=== PATIENT | male | born 1965 | race Caucasian/White ===

== ENCOUNTER → 2016-03-23 | Day surgery (SDC) | payer MEDICAID ==
[~2016-03-23] VITALS: Ht 193 cm; Wt 97.5 kg
[~2016-03-23] MED LIST: ACETAMINOPHEN/HYDROcodone 325 MG/5 MG TAB PO PRN; BUPIVACAINE HCL PF 0.5% 30 ML VIAL ONE; CLINDAMYCIN INJ 900 MG in SODIUM CHLORIDE 0.9% INJ 100 ML IV SCH; DEPA500T3 PO; DEXT 5%-NACL 0.45% 1000 ML INJ 1,000 ML IV SCH; DEXTROSE 5%-LACTATED RING INJ 1,000 ML IV ONE; DEXTROSE 5%-LACTATED RING INJ 1,000 ML IV SCH; DEXTROSE 5%-LACTATED RING INJ 1,000 ML ONE; DO NOT ADM ANY ANTICOAGULANT DRUGS XX PRN; FAMOTIDINE 20 MG/2 ML VIAL ONE; HYDR-3288 PO; INSULIN HUMAN REGULAR 1,000 UNITS/10 ML VIAL SQ PRN; LACTATED RINGER'S 1000 ML IV SCH; LANTUS2P SQ; LEVE500 PO; METOPROLOL TARTRATE 25 MG TAB PO PRN; MIDAZOLAM HCL 2 MG/2 ML VIAL ONE; NEOSTIGMINE METHYLSULFATE 10 MG/10 ML VIAL IV PUSH ONE; NORMOSOL R INJ 1,000 ML IV ONE; NOVORP2 SQ; OMEP40CA2 PO; ONDANSETRON HCL 4 MG/2 ML VIAL IV PUSH ONE; POVIDONE IODINE 10% OINT 1 PACKET TOP ONE; PROPOFOL 200 MG/20 ML AMP IV ONE; SIMV40TA PO; SODIUM CHLORID 0.9% 500 ML IV SCH; SODIUM CHLORIDE 0.9% FLUSH 5 ML FLUSH IVF PRN; SODIUM CHLORIDE 0.9% FLUSH 5 ML FLUSH IVF SCH; SODIUM CHLORIDE 0.9% INJ 100 ML ONE; TEGR400T PO; fentaNYL CITRATE 250 MCG/5 ML AMP ONE
[2016-03-23 06:40] VITALS: BP 125/72; PULSE 57; RESP 20; TEMP 98.6; O2SAT 99
[2016-03-23 06:55] LABS: AUTOMATED NEUTROPHIL # 3.1 TH/MM3 (1.8-7.7); BASOPHIL % 0.4 % (0.0-2.0); EOSINOPHIL # 0.1 TH/MM3 (0-0.4); EOSINOPHIL % 2.4 % (0.0-4.0); HEMATOCRIT 39.9 % (39.0-51.0); HEMO FLAGS DIFF FINAL; LYMPH % 29.9 % (9.0-44.0); LYMPHOCYTE # 1.6 TH/MM3 (1.0-4.8); MEAN CELL VOLUME 90.3 FL (80.0-100.0); MEAN CORPUSCULAR HEMOGLOBIN 31.2 PG (27.0-34.0); MEAN CORPUSCULAR HGB CONC 34.5 % (32.0-36.0); MONO % 8.8 % (0.0-8.0); NEUT % 58.5 % (16.0-70.0); PLATELET COUNT 198 TH/MM3 (150-450); RED BLOOD COUNT 4.42 MIL/MM3 (4.50-5.90); RED CELL DISTRIBUTION WIDTH 14.1 % (11.6-17.2); WHITE BLOOD COUNT 5.2 TH/MM3 (4.0-11.0)
--- NOTE | 2016-03-23 07:54 | HP.UPD ---
H&P Update Date: Mar 23, 2016 Note The Pre-Admit History and Physical Examination regarding the above named patient was reviewed (including, but not limited to, vital signs, medications, allergies, co-morbid conditions), and upon re-examination it is noted that: Indicated with "X" x - the patient's condition has not significantly changed since the last examination. [] - the patient's condition has changed since the last examination. Changes: Radha Faith MD Mar 23, 2016 07:54
--- NOTE | 2016-03-23 08:28 | EKG ---
Date Performed: 03/23/2016 Time Performed: 07:45:23 PTAGE: 50 years EKG: SINUS BRADYCARDIA BORDERLINE ECG PREVIOUS TRACING : 06/22/2015 13.21 No significant change from previous tracing noted. DOCTOR: Lito Saldana Interpretating Date/Time 03/23/2016 08:27:54
--- NOTE | 2016-03-23 11:08 | HHI.PR ---
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 Release Dupuytren's contracture of right palm and ring finger. 2. Open release of the right carpal tunnel. 3. Open release of right Guyon's canal. Specimen(s) removed: Dupuytren's fascia of palm and ring finger Anesthesia: General Drains: None Tourniquet time (min at mmHg) 100 minutes at 220 mmHg Patient to: PACU Patient Condition: Good Date/Time of Procedure: SEE SURGICAL CARE RECORD Radha Faith MD Mar 23, 2016 11:08
[2016-03-23 12:38] VITALS: BP 115/68; PULSE 56; RESP 16; TEMP 97.6; O2SAT 98
--- NOTE | 2016-03-23 13:35 | MP ---
cc: FRANCESCO TAPIA M.D. DATE OF OPERATION 03/23/2016 PREOPERATIVE DIAGNOSES 1. Dupuytren's contracture of the right palm at the ring finger. 2. Right carpal tunnel syndrome. 3. Compression of right Guyon's canal. POSTOPERATIVE DIAGNOSES 1. Dupuytren's contracture of the right palm at the ring finger. 2. Right carpal tunnel syndrome. 3. Compression of right Guyon's canal. PROCEDURE 1. Release Dupuytren's contracture of the right palm and ring finger. 2. Open release of the right carpal tunnel 3. Open release of right Guyon's canal. ANESTHESIA General. SURGEON Francesco Tapia MD INDICATIONS A 50-year-old male with moderate contracture at the MP joint of his right ring finger with a cord going from the proximal palm all the way to the mid-proximal phalanx. FINDINGS At the completion of the procedure the finger was straight, the fascia was removed. Carpal tunnel was released as well as Guyon's canal. There is a significant amount of scarring around the median nerve which was stuck up against the ligament. At the completion of the procedure it had been freed. TOURNIQUET TIME 100 minutes to 220 mmHg. PROCEDURE The patient was seen preoperatively where the sites and side were identified and marked. The patient was then taken to the operating room, placed in a supine position. His identity was checked against the arm band the consent form, site and side confirmed, time-out called prior to beginning the procedure. The right upper extremity was prepped with Hibiclens and draped in the usual sterile fashion. The area to be incised was outlined with a marking pen as a zigzag incision from the mid-ring finger all the way to the area of the mid-palm. A longitudinal incision was then designed from this portion proximally just to the ulnar side of the midline. The hand was exsanguinated and the tourniquet inflated to 220 mmHg. A #15 blade was then used make the incision in the proximal palm, down through the skin, down to the subcutaneous tissue. Under loupe magnification the palmar fascia was reached and distally a small hole was poked through the palmar fascia and, using the ulnar artery as a guide, Guyon's canal was released. The ulnar artery and nerve were then retracted ulnarly, the median nerve retracted medially and using the flexor tendon to the ring finger as a guide the transverse carpal ligament was divided. It was noted that the ligament was quite thickened and the tunnel was quite tight. Once the forearm fascia was reached, the scissor was kept in a slowly opened position and using the push technique the forearm fascia was divided approximately 2-3 cm to the distal wrist. The dissection was then continued distally where the zigzag incision was made all the way to the midportion of the proximal phalanx of the ring finger. Flaps were elevated and raised exposing Dupuytren's fascia which was then from the skin as well as the deep structures. Neurovascular bundles were identified and protected during the dissection until all of the Dupuytren's fascia was removed. Small vessels were cauterized with bipolar cautery. The common digital nerve to the middle and ring finger was then traced back into the carpal tunnel in order to identify the median nerve which was stuck in thick scar tissue up against the transverse carpal ligament. Under loupe magnification it was then carefully from the roof of the tunnel and freed and epineurolysis was performed under loupe magnification. The wound was then copiously irrigated with saline and closed with interrupted running 4-0 nylon suture material. Once the wound was closed, the tourniquet was released after 100 minutes of tourniquet time. Pressure was applied. After several minutes there was no evidence of any oozing and a dressing was applied using povidone-iodine ointment, Adaptic, Telfa, fluffy gauze and a palmar splint. Of note is that at the beginning the procedure, bupivacaine 0.5% plain was used to make a median nerve block as well as an ulnar nerve block in the distal forearm. Once the dressing was placed, the patient was taken from the operating room to the recovery room in satisfactory condition having tolerated the procedure well. Postoperative instructions include keeping the arm elevated, keeping the area clean and dry and returning in several days for followup. MD MIKIE Kennedy/TONIE /11:13 AM /1:26 PM MTDIvette
== END | disposition home or self-care (01) ==
LOC: HSDC 05:33
PROVIDERS: ATTEND Specialist
DX: M72.0 Palmar fascial fibromatosis [Dupuytren] (principal); G56.01 Carpal tunnel syndrome, right upper limb; E11.9 Type 2 diabetes mellitus without complications; F17.210 Nicotine dependence, cigarettes, uncomplicated
CPT/HCPCS: 01810; 26123; 64719; 64721; 82948; 85025; 88304; 93005; J2250; J2405; J2710; J3010; J7120; J7121; 88305

== ENCOUNTER 2016-09-27 19:30 | Emergency (ER) | payer MEDICAID ==
[~2016-09-27] VITALS: Ht 193 cm; Wt 101.5 kg
[~2016-09-27 19:30] MED LIST changes: -ACETAMINOPHEN/HYDROcodone 325 MG/5 MG TAB PO PRN; -BUPIVACAINE HCL PF 0.5% 30 ML VIAL ONE; -CLINDAMYCIN INJ 900 MG in SODIUM CHLORIDE 0.9% INJ 100 ML IV SCH; -DEXT 5%-NACL 0.45% 1000 ML INJ 1,000 ML IV SCH; -DEXTROSE 5%-LACTATED RING INJ 1,000 ML IV ONE; -DEXTROSE 5%-LACTATED RING INJ 1,000 ML IV SCH; -DEXTROSE 5%-LACTATED RING INJ 1,000 ML ONE; -DO NOT ADM ANY ANTICOAGULANT DRUGS XX PRN; -FAMOTIDINE 20 MG/2 ML VIAL ONE; -HYDR-3288 PO; -INSULIN HUMAN REGULAR 1,000 UNITS/10 ML VIAL SQ PRN; -LACTATED RINGER'S 1000 ML IV SCH; -METOPROLOL TARTRATE 25 MG TAB PO PRN; -MIDAZOLAM HCL 2 MG/2 ML VIAL ONE; -NEOSTIGMINE METHYLSULFATE 10 MG/10 ML VIAL IV PUSH ONE; -NORMOSOL R INJ 1,000 ML IV ONE; -ONDANSETRON HCL 4 MG/2 ML VIAL IV PUSH ONE; -POVIDONE IODINE 10% OINT 1 PACKET TOP ONE; -PROPOFOL 200 MG/20 ML AMP IV ONE; -SODIUM CHLORID 0.9% 500 ML IV SCH; -SODIUM CHLORIDE 0.9% FLUSH 5 ML FLUSH IVF PRN; -SODIUM CHLORIDE 0.9% FLUSH 5 ML FLUSH IVF SCH; -SODIUM CHLORIDE 0.9% INJ 100 ML ONE; -fentaNYL CITRATE 250 MCG/5 ML AMP ONE
[2016-09-27 20:02] VITALS: BP 133/77; PULSE 66; RESP 14; TEMP 98.3; O2SAT 99
[2016-09-27] MEDS ORDERED: DEPA500T3 PO (20:13)
[2016-09-27] MEDS ORDERED: MORPHINE SULFATE 4 MG/ML INJ IM ONE (20:15)
[2016-09-27] MEDS ORDERED: ONDANSETRON HCL 4 MG/2 ML VIAL IM ONE (20:15)
[2016-09-27] MEDS ORDERED: MORPHINE SULFATE 8 MG/ML INJ ONE (20:24)
--- NOTE | 2016-09-27 21:05 | PD ---
HPI Chief Complaint: Musculoskeletal Complaint Time Seen by Provider: 20:59 Travel History International Travel<30 days: No Contact w/Intl Traveler<30days: No Traveled to known affect area: No History of Present Illness HPI 51-year-old male that presents to the ED for evaluation of right shoulder pain. Per patient she's had this for about 3 days. Per patient and 3 days ago he had a seizure. Per patient she doesn't know what actually happened as he usually has grand mal seizures. Per patient he did not hit his head or lose consciousness but he states that he was in his bed which is on the floor when this happened. Per patient ever since she's been having severe pain on the scapular area of his right side. Per patient he feels like something is pulling on his shoulder. Per patient's progressively getting worse. He has not been able to take anything for it. He states compliance with his seizure medication on his diabetic medication. Per patient she denies any drug abuse or alcohol abuse. He does have allergies to Keflex, Toradol and tramadol. He does tell me that he had a previous injury before to that shoulder from what appears to be of throwing injury. He has never been seen by orthopedic doctor for this. Patient per patient is 10 out of 10. Per patient he does radiate to the elbow as well as to the right index finger. PFSH Past Medical History Arthritis: Yes Asthma: No Autoimmune Disease: No Blood Disorders: No Bipolar Disorder: Yes Anxiety: Yes Depression: Yes Heart Rhythm Problems: No Cancer: No Cardiovascular Problems: No High Cholesterol: Yes Chemotherapy: No Chest Pain: No Congestive Heart Failure: No COPD: No Cerebrovascular Accident: No Diabetes: Yes Patient Takes Glucophage: No Diminished Hearing: No Endocrine: Yes Gastrointestinal Disorders: Yes (ACID REFLUX) GERD: No Glaucoma: No Genitourinary: No Headaches: No Hepatitis: No Hiatal Hernia: No Hypertension: No Immune Disorder: No Kidney Stones: No Musculoskeletal: Yes (ARTHRITIS; CARPAL TUNNEL SYNDROME) Neurologic: Yes (EPILEPSY) Psychiatric: No Reproductive: No Respiratory: No Immunizations Current: No Myocardial Infarction: No Radiation Therapy: No Renal Failure: No Seizures: Yes (EPILEPSY) Sickle Cell Disease: No Sleep Apnea: No Thyroid Disease: No Ulcer: No PNEUMOCCOCAL Vaccine (Year): none Past Surgical History Abdominal Surgery: No AICD: No Cardiac Surgery: No Ear Surgery: No Endocrine Surgery: No Eye Surgery: No Genitourinary Surgery: No Gynecologic Surgery: No Joint Replacement: No Neurologic Surgery: Yes Oral Surgery: Yes (TEETH REMOVED) Pacemaker: No Thoracic Surgery: No Other Surgery: Yes (REATTACHED RIGHT RING FINGER) Social History Alcohol Use: No Tobacco Use: Yes (3 cigarettes/day) Substance Use: No Allergies-Medications (Allergen,Severity, Reaction): Coded Allergies: Keflex (Verified Allergy, Severe, "THRUSH", 09/27/16) Toradol (Verified Allergy, Severe, "INSOMNIA/NIGHT TERRORS", 09/27/16) Tramadol (Verified Allergy, Severe, CONFUSION, 09/27/16) Reported Meds & Prescriptions Reported Meds & Active Scripts Active Prednisone 20 Mg Tab 20 Mg PO BID Lortab (Hydrocodone-Acetaminophen) 7.5-325 Mg Tab 1 Tab PO Q6H PRN Reported Depakote ER (Divalproex Sodium) 500 Mg Nichol 1,000 Mg PO DAILY Novolin R Inj (Insulin Human Regular) 1,000 Unit/10 Ml Vial 0 SQ DIRECTED Sliding Scale As Directed. Keppra (Levetiracetam) 500 Mg Tab 1,000 Mg PO HS Simvastatin 40 Mg Tab 40 Mg PO HS Omeprazole 40 Mg Cap 40 Mg PO HS Depakote ER (Divalproex Sodium) 500 Mg Nichol 1,000 Mg PO HS Tegretol-Xr 12 HR (Carbamazepine) 400 Mg Tab 800 Mg PO DAILY Lantus Inj (Insulin Glargine) 1,000 Unit/10 Ml Vial 47 Units SQ DAILY@NOON Review of Systems Except as stated in HPI: all other systems reviewed are Neg Physical Exam Narrative GENERAL: SKIN: Warm and dry. HEAD: Atraumatic. Normocephalic. EYES: Pupils equal and round. No scleral icterus. No injection or drainage. ENT: No nasal bleeding or discharge. Mucous membranes pink and moist. Tongue is midline. No uvula deviation. NECK: Trachea midline. No JVD. CARDIOVASCULAR: Regular rate and rhythm. No murmurs, S3, S4. RESPIRATORY: No accessory muscle use. Clear to auscultation. Breath sounds equal bilaterally. GASTROINTESTINAL: Abdomen soft, non-tender, nondistended. Hepatic and splenic margins not palpable. MUSCULOSKELETAL: Extremities without clubbing, cyanosis, or edema. No obvious deformities. Full range of motion of the left upper extremity as well as the lower extremities with no pain. 2+ pulses bilaterally. Patient does have pain with abduction of the right shoulder but mainly around the posterior aspect of the shoulder. Most of the pain appears to be on the musculature between the scapula and the shoulder itself. Muscle pain is not in this area. No obvious deformity noted however. NEUROLOGICAL: Awake and alert. No obvious cranial nerve deficits. Motor grossly within normal limits. Five out of 5 muscle strength in the arms and legs. Normal speech. PSYCHIATRIC: Appropriate mood and affect; insight and judgment normal. Data Data Last Documented VS Vital Signs Date Time Temp Pulse Resp B/P Pulse Ox O2 Delivery O2 Flow Rate FiO2 09/27/16 20:02 98.3 66 14 133/77 99 Orders Humerus (Min 2vws) (09/27/16 20:15) Shoulder, Complete (>2vws) (09/27/16 20:15) Ice/Cold Pack (09/27/16 20:15) Morphine Inj (Morphine Inj) (09/27/16 20:15) Ondansetron Inj (Zofran Inj) (09/27/16 20:15) Morphine Inj (Morphine Inj) (09/27/16 20:24) Splint Or Brace Apply/Monitor (09/27/16 21:27) MDM Medical Decision Making Medical Screen Exam Complete: Yes Emergency Medical Condition: Yes Medical Record Reviewed: Yes Interpretation(s) Last Impressions Shoulder X-Ray 09/27/162014 Signed Impressions: Service Date/Time: Tuesday, September 27, 2016 20:38 - CONCLUSION: No definite fracture is seen for technique. Yanira Manzanares MD Humerus X-Ray 09/27/162014 Signed Impressions: Service Date/Time: Tuesday, September 27, 2016 20:44 - CONCLUSION: No definite fracture is seen for technique. Yanira Manzanares MD Differential Diagnosis Fracture versus sprain versus strain versus rotator cuff injury Narrative Course 51-year-old male that presents to the ED for what appears to be a rotator cuff injury. X-rays were ordered. Patient was given IM pain medications. X-ray showed no sign of acute bony injury. Patient was reassured. This time I believe the patient likely has an injury to the rotator cuff. Likely muscle. Patient given prescription for prednisone as he cannot take in [place] as well as Lortab for pain. Told to apply ice or warm compresses. Given sling. Follow -up with PCP. See ED if worsening symptoms. Diagnosis Primary Impression: Shoulder pain, acute Qualified Code: M25.511 - Acute pain of right shoulder Patient Instructions: General Instructions, Narcotic given in the ED Additional Instructions: Take medications as prescribed. Follow-up with PCP. See ED for any worsening symptoms. Do not drink or drive while taking pain medication. Apply ice or heat as needed for pain Med/Other Pt SpecificInfo: Prescription(s) given Scripts Prednisone 20 Mg Tab20 Mg PO BID #10 TAB Prov:Benoit Palma MD 09/27/16 Hydrocodone-Acetaminophen (Lortab)7.5-325 Mg Tab1 Tab PO Q6H PRN (PAIN) #14 TAB Ref 0 Prov:Benoit Palma MD 09/27/16 Disposition: 01 DISCHARGE HOME Condition: Stable Miguel A Christopher Sep 27, 2016 21:05
--- NOTE | 2016-09-27 21:23 | RADRPT ---
EXAM DATE/TIME: 09/27/2016 20:38 [facility] COMPARISON: CHEST SINGLE AP, January 31, 2013, 15:45. CHEST SINGLE AP, June 22, 2015, 13:44. INDICATIONS : Right shoulder pain. MEDICAL HISTORY : None. SURGICAL HISTORY : None. ENCOUNTER: Initial ACUITY: 1 day PAIN SCORE: 8/10 LOCATION: Right shoulder. FINDINGS: No definite fractures, or dislocations are identified. No definite lytic or sclerotic lesion is seen . The joint space is well maintained. Approximate 1.4 cm right lung nodule has not changed since 201 3. CONCLUSION: No definite fracture is seen for technique. KSky Manzanares MD on September 27, 2016 at 21:21 Board Certified Radiologist. This report was verified electronically.
--- NOTE | 2016-09-27 21:26 | RADRPT ---
EXAM DATE/TIME: 09/27/2016 20:44 [facility] COMPARISON: CHEST SINGLE AP, January 31, 2013, 15:45. INDICATIONS : Right arm pain. MEDICAL HISTORY : None. SURGICAL HISTORY : None. ENCOUNTER: Initial ACUITY: 1 day PAIN SCORE: 8/10 LOCATION: Right humerus. FINDINGS: No definite fractures, or dislocations are identified. No definite lytic or sclerotic lesion is seen . Approximate 1.4 cm right lung nodule has not changed since 2012. CONCLUSION: No definite fracture is seen for technique. KSky Manzanares MD on September 27, 2016 at 21:23 Board Certified Radiologist. This report was verified electronically.
[2016-09-27] MEDS ORDERED: HYDR-3534 PO (21:27)
[2016-09-27] MEDS ORDERED: PRED20 PO (21:38)
== END 2016-09-27 22:10 | disposition home or self-care (01) ==
LOC: PHEFT 19:30
DX: M25.511 Pain in right shoulder (principal); E11.9 Type 2 diabetes mellitus without complications; E78.00 Pure hypercholesterolemia, unspecified; Z72.0 Tobacco use; Z79.4 Long term (current) use of insulin; Z87.39 Personal history of other diseases of the musculoskeletal system and connective tissue; Z86.59 Personal history of other mental and behavioral disorders; Z87.19 Personal history of other diseases of the digestive system; Z86.69 Personal history of other diseases of the nervous system and sense organs
CPT/HCPCS: 73030; 73060; 96374; 96375; 99284; J2270; J2405